=== PATIENT | male | born 1960 | race Caucasian/White ===

== ENCOUNTER → 2016-11-17 | Outpatient (CLI) | payer OTHER ==
[~2016-11-17] MED LIST: DEPO-TESTO200 MG/1 M IM; ELIQUIS2.5 MG PO; MELOXICAM15 MG PO; NORVASC 5 MG TAB5 MG PO; OMEPRAZOLE20 M1 PO; PAXIL40 MG PO; PERCOCET 10-321 EACH PO; SIMVASTATIN20 MG PO; TIZANIDINE HCL4 MG PO
[2016-11-17 09:45] LABS: HEMOGLOBIN 15.7 gm/dl (14.0-17.5); WHITE BLOOD COUNT 6.1 K/UL (4.5-11.0)
[2016-11-17 10:03] LABS: BUN/CREATININE RATIO 14 (0-10)
== END ==
LOC: OPSV2 08:58 → EDSTATUS 09:00 → OPSV2 09:00
PROVIDERS: Orthopaedic Surgery
DX: Z01.812 Encounter for preprocedural laboratory examination (principal); Z01.810 Encounter for preprocedural cardiovascular examination; M16.12 Unilateral primary osteoarthritis, left hip; I10 Essential (primary) hypertension; K21.9 Gastro-esophageal reflux disease without esophagitis; Z88.0 Allergy status to penicillin
CPT/HCPCS: 36415; 80048; 81001; 85025; 87081; 93005

== ENCOUNTER → 2016-11-19 | Outpatient (CLI) | payer OTHER | LOC: ECHO 10:51 | DX: Z01.810 Encounter for preprocedural cardiovascular examination (principal); I10 Essential (primary) hypertension | CPT/HCPCS: 93308 ==

== ENCOUNTER → 2016-11-29 | Outpatient (CLI) | payer OTHER ==
[2016-11-29 11:29] LABS: BUN/CREATININE RATIO 16 (0-10)
== END ==
LOC: LAB 10:45
PROVIDERS: Orthopaedic Surgery
DX: Z01.812 Encounter for preprocedural laboratory examination (principal)
CPT/HCPCS: 36415; 80048; 86850; 86900; 86901

== ENCOUNTER 2016-11-30 08:15 | Inpatient (IN) | payer OTHER ==
[~2016-11-30] VITALS: Ht 172.7 cm; Wt 82.6 kg
[2016-11-30] MEDS ORDERED: PAXIL40 MG PO (11:51)
[2016-11-30] MEDS ORDERED: MELOXICAM15 MG PO (11:51)
[2016-11-30] MEDS ORDERED: NORVASC 5 MG TAB5 MG PO (11:52)
[2016-11-30] MEDS ORDERED: SIMVASTATIN20 MG PO (11:52)
[2016-11-30] MEDS ORDERED: TIZANIDINE HCL4 MG PO (11:53)
[2016-11-30] MEDS ORDERED: OMEPRAZOLE20 M1 PO (11:53)
[2016-11-30] MEDS ORDERED: DEPO-TESTO200 MG/1 M IM (11:54)
[2016-12-01 06:41] LABS: HEMOGLOBIN 11.9 gm/dl (14.0-17.5); RED BLOOD COUNT 3.88 M/UL (4.20-5.50)
[2016-12-01 06:47] LABS: BUN/CREATININE RATIO 28 (0-10)
[2016-12-02 06:07] LABS: HEMOGLOBIN 11.6 gm/dl (14.0-17.5); RED BLOOD COUNT 3.73 M/UL (4.20-5.50); WHITE BLOOD COUNT 12.2 K/UL (4.5-11.0)
[2016-12-02 06:28] LABS: BUN/CREATININE RATIO 10 (0-10)
[2016-12-02] MEDS ORDERED: ELIQUIS2.5 MG PO (13:17)
[2016-12-02] MEDS ORDERED: PERCOCET 10-321 EACH PO (13:17)
--- NOTE | 2016-12-02 14:58 | NUR ---
1455 - [facility] PATIENT DISCHARGED AT THIS TIME.
== END 2016-12-02 14:56 | disposition home health service (06) | DRG 470 ==
LOC: ZOBSOF 10:55 → M/S 20:02
PROVIDERS: ADMIT Orthopaedic Surgery
PROC: 0SRB04A Replacement of Left Hip Joint with Ceramic on Polyethylene Synthetic Substitute, Uncemented, Open Approach (ICD-10-PCS; principal; 2016-11-30 14:45)
DX: M16.12 Unilateral primary osteoarthritis, left hip (principal); I10 Essential (primary) hypertension; E78.5 Hyperlipidemia, unspecified; F32.9 Major depressive disorder, single episode, unspecified; K21.9 Gastro-esophageal reflux disease without esophagitis; Z82.49 Family history of ischemic heart disease and other diseases of the circulatory system; Z83.511 Family history of glaucoma; Z88.0 Allergy status to penicillin
CPT/HCPCS: 36415; 73501; 76000; 80048; 80053; 85025; 86850; 86900; 86901; 97110; 97116; 97535; C1776; J0690; J1071; J1885; J2250; J2270; J2370; J7030; J7050; J7120